=== PATIENT | male | born 1945 | race Caucasian/White ===

== ENCOUNTER 2016-09-09 07:03 | Observation (INO) | payer OTHER ==
[2016-09-09] MEDS ORDERED: NS 1,000 ML IV ONE (07:13)
--- NOTE | 2016-09-09 07:38 | CPEKG ---
Heart Rate: 65 RR Interval: 923 P-R Interval: 184 QRSD Interval: 154 QT Interval: 468 QTC Interval: 487 P [place]: 24 QRS [place]: -18 T Wave [place]: 144 EKG Severity - ABNORMAL ECG - EKG Impression: SINUS RHYTHM EKG Impression: LEFT BUNDLE BRANCH BLOCK Electronically Signed By: Ravindra Muñiz 09-Sep-2016 11:19:01
[2016-09-09 08:11] LABS: % IMMATURE GRANULYOCYTES 0.3 % (0.0-1.1); ABSOLUTE IMMATURE GRANULOCYTES 0.02 10^3/uL (0.00-0.10); ADD DIFF? NO; ADD MORPH? NO; ADD SCAN? NO; ATYPICAL LYMPHOCYTE FLAG 10 (0-99); FRAGMENT RBC FLAG 0 (0-99); HEMATOCRIT 48.3 % (40.0-51.0); HEMOGLOBIN 16.2 g/dL (13.7-17.5); LEFT SHIFT FLG 0 (0-99); LIPEMIA HEMOLYSIS FLAG 80 (0-99); MEAN CELL HEMOGLOBIN 30.5 pg (27.9-34.1); MEAN CELL HEMOGLOBIN CONCENTR. 33.5 g/dL (32.4-36.7); MEAN CELL VOLUME 90.8 fL (81.5-99.8); MEAN PLATELET VOLUME 10.5 fL (8.7-11.7); PLATELET CLUMPS FLAG 0 (0-99); PLATELET COUNT 179 10^3/uL (150-400); RED BLOOD CELL COUNT 5.32 10^6/uL (4.40-6.38); RED CELL DISTRIBUTION WIDTH 13.5 % (11.5-15.2)
[2016-09-09] MEDS ORDERED: ISOPROTERENOL HCL 0.2 MG/ML 5ML AMP ONE (08:13)
[2016-09-09] MEDS ORDERED: HEPARIN 10,000 UNIT/10 ML MDV ONE (08:13)
[2016-09-09] MEDS ORDERED: LIDOCAINE 1% 30 ML SDV ONE (08:13)
[2016-09-09] MEDS ORDERED: BUPIVACAINE 0.5% 30 ML SDV ONE (08:13)
[2016-09-09 08:17] LABS: INR 1.09 (0.83-1.16)
[2016-09-09 08:18] LABS: APTT 30.7 SEC (23.0-38.0)
[2016-09-09 08:22] LABS: ANION GAP 10 mEq/L (8-16); CALCIUM 8.8 mg/dL (8.5-10.4); CARBON DIOXIDE 24 mEq/l (22-31); CHLORIDE 108 mEq/L (97-110); CREATININE 0.8 mg/dL (0.7-1.3); GLOMERULAR FILTRATION RATE > 60; GLUCOSE 106 mg/dL (70-100); MAGNESIUM 1.9 mg/dL (1.6-2.3); POTASSIUM 4.7 mEq/L (3.5-5.2); SODIUM 142 mEq/L (134-144); SPECIMEN HEMOLYSIS 109
[2016-09-09] MEDS ORDERED: PROPOFOL 200 MG/20 ML VIAL ONE (08:49)
[2016-09-09] MEDS ORDERED: fentaNYL 250 MCG/5 ML INJ ONE (08:49)
[2016-09-09] MEDS ORDERED: DEXAMETHASONE 4 MG/ML VIAL ONE ×2 (08:49)
[2016-09-09] MEDS ORDERED: ONDANSETRON 4 MG/2 ML VIAL ONE (08:49)
[2016-09-09] MEDS ORDERED: MIDAZOLAM 2 MG/2 ML VIAL ONE (08:49)
[2016-09-09] MEDS ORDERED: PHENYLEPHRINE HCL 100 MCG/ML SYR ONE (09:09)
[2016-09-09] MEDS ORDERED: ROCURONIUM 50 MG/5 ML VIAL ONE (09:13)
[2016-09-09] MEDS ORDERED: ATROPINE SULFATE 1 MG/10 ML SYR ONE (11:08)
[2016-09-09] MEDS ORDERED: ONDANSETRON 4 MG/2 ML VIAL IVP PRN (11:11)
[2016-09-09] MEDS ORDERED: ACETAMINOPHEN 325 MG TAB PO PRN (11:11)
[2016-09-09] MEDS ORDERED: OXYCODONE/APAP 5/325 TAB PO PRN (11:11)
--- NOTE | 2016-09-09 11:11 | EPPROC ---
Electrophysiology Procedure Note: ELECTROPHYSIOLOGIC STUDY AND CATHETER MEDIATED ABLATION OF SLOW/FAST AV ROSS REENTRY TACHYCARDIA PROCEDURES PERFORMED: 01588-15 EP evaluation with RA/RV/LA pace/record, with arrhythmia induction 12143-00 EP evaluation with RA/RV pace record, insert/reposition catheter, with arrhythmia induction 37623 Intracardiac catheter ablation, SVT arrhythmogenic focus 01991 3D mapping Fluoroscopy INDICATION: LBBB SVT PROCEDURE: Catheters & Anesthesia: The patient arrived in the Electrophysiology Laboratory in the fasting state. The right clavicular region, right groin, and left groin area were prepped and draped in the usual sterile manner. Anesthesiologist Dr. Myranda Felix administered general anesthesia. Appropriate non-invasive blood pressure, pulse oximetry and end-tidal CO2 monitoring was established. All catheters were placed percutaneously using the modified Seldinger technique , and advanced into position under fluoroscopic guidance. One #6 Syrian hexapolar non-deflectable electrode catheter was inserted into the right atrial appendage via the left femoral vein (2mm spacing; except the proximal ring which was 25cm from the tip - used for unipolar recordings). One #7 Syrian deflectable octapolar electrode catheter was advanced to the His-bundle position via the left femoral vein (2mm spacing). One #7 Syrian deflectable quadrapolar catheter was advanced to the anteroseptal right ventricle via the right femoral vein. One #7 Syrian deflectable catheter with 10 pairs of electrodes was placed via the right femoral vein into the coronary sinus. Heparin was given to keep ACT > 200 s. Programmed stimulation was performed from the right atrium, right ventricle and coronary sinus (left atrium). Parahisian pacing demonstrated constant H-A interval with changing V-A intervals and stimulus-A intervals during capture and loss of capture of proximal RBB proving retrograde conduction over AV node. AVNRT was induced easily during infusion of isoproterenol 1 mcg/min. Ventricular extrastimuli delivered during tachycardia without altering antegrade His bundle activation did not advance next atrial potential, indicating that the tachycardia was not utilizing an accessory pathway for retrograde conduction. VA interval was -20 ms. Post entrainment of the tachycardia from the ventricle, there was VAHV response. Mapping of the right atrium and coronary sinus during AVNRT identified earliest atrial activation above the tendon of Laith at a level slightly posterior to the level of the His bundle, consistent with retrograde conduction over the fast AV ross pathway. A #8 Syrian deflectable quadrapolar electrode catheter (2mm-5mm-2mm spacing) with 4 mm tip electrode and sensor for the 3D mapping Carto system was advanced to the right atrium. 3 D mapping of the inter-atrial septum and coronary sinus was performed and location of the AV node was marked. A SL2 sheath was used. RF applications were delivered to the region between the tricuspid annulus and the coronary sinus ostium, at the level of the upper edge of the coronary sinus ostium. Radiofrequency applications were also delivered along the roof of the proximal coronary sinus. Junctional rhythm occurred during all of the RF applications. Programmed stimulation was continued post ablation at baseline and during graded doses of isoproterenol upto 4mcg/min. Sustained AVNRT was not inducible. There were single echo beats. The catheters were removed. The long sheath was changed to a short 9 Fr sheath. The patient was transferred to the cardiovascular holding area in stable condition. Vascular access sheaths were removed in the holding area. There were no apparent complications. Results: A. Spontaneous Intervals: Pre ablation SCL 980 ms AH 50 ms HV 60 ms Post ablation SCL 530 ms AH 50 ms HV 55 ms B. Antegrade AV ross function (decremental pacing) Pre ablation FPERP 390 ms WBB CL 380 ms Post ablation FPERP 350 ms WBB CL 340 ms C. Retrograde AV ross function (decremental pacing) Pre ablation FPERP 400 ms WBB CL 390 ms D. Arrhythmias: Sustained slow/fast AVNRT Cycle length 380 ms, AH interval 300 ms, VIERA interval 80 ms VA interval -20 ms CONCLUSIONS 1. AV ross reentrant tachycardia using the slow AV ross pathway for antegrade conduction and the fast AV ross pathway for retrograde conduction. ( Slow/fast AVNRT). 2. Successful ablation of the slow AV ross pathway with elimination of 1:1 antegrade conduction over the slow AV ross pathway, all retrograde conduction over the slow AV ross pathway and the inducibility of AVNRT. 3. No complications. Patient Problems: Problems Problem Status Diagnosed Supraventricular tachycardia Acute
[2016-09-09] MEDS ORDERED: ALPRAZolam 0.5 MG TAB PO PRN (11:13)
[2016-09-09] MEDS ORDERED: ASPIRIN 325 MG TAB PO PRN (11:13)
[2016-09-09] MEDS ORDERED: IBUPROFEN 200 MG TAB PO PRN (11:13)
[2016-09-09] MEDS ORDERED: ZOLPIDEM TARTRATE 5 MG TAB PO PRN (11:13)
--- NOTE | 2016-09-09 11:36 | CPEKG ---
Heart Rate: 79 RR Interval: 759 P-R Interval: 204 QRSD Interval: 154 QT Interval: 444 QTC Interval: 510 P [place]: 45 QRS [place]: -12 T Wave [place]: 148 EKG Severity - ABNORMAL ECG - EKG Impression: SINUS RHYTHM EKG Impression: LEFT BUNDLE BRANCH BLOCK Electronically Signed By: Radhames Arizmendi 09-Sep-2016 16:44:20
[2016-09-09 12:11] LABS: ANION GAP 10 mEq/L (8-16); CALCIUM 8.4 mg/dL (8.5-10.4); CARBON DIOXIDE 24 mEq/l (22-31); CHLORIDE 108 mEq/L (97-110); CREATININE 0.9 mg/dL (0.7-1.3); GLOMERULAR FILTRATION RATE > 60; GLUCOSE 115 mg/dL (70-100); MAGNESIUM 1.8 mg/dL (1.6-2.3); POTASSIUM 4.3 mEq/L (3.5-5.2); SODIUM 142 mEq/L (134-144)
[2016-09-09] MEDS ORDERED: metFORMIN SR 500 MG TAB PO SCH (17:00)
[2016-09-09] MEDS: METOPROLOL TARTRATE 25 MG TAB PO SCH (19:59)
[2016-09-09] MEDS ORDERED: ATORVASTATIN CALCIUM 40 MG TAB PO SCH (21:00)
[2016-09-09] MEDS ORDERED: METFORMIN HCL 500 MG PO SCH (21:00)
[2016-09-09] MEDS ORDERED: metFORMIN HCL 500 MG TAB PO SCH (21:00)
[2016-09-10 04:52] LABS: % IMMATURE GRANULYOCYTES 0.4 % (0.0-1.1); ABSOLUTE IMMATURE GRANULOCYTES 0.05 10^3/uL (0.00-0.10); ADD DIFF? NO; ADD MORPH? NO; ADD SCAN? NO; ATYPICAL LYMPHOCYTE FLAG 0 (0-99); FRAGMENT RBC FLAG 10 (0-99); HEMATOCRIT 45.5 % (40.0-51.0); HEMOGLOBIN 15.8 g/dL (13.7-17.5); LEFT SHIFT FLG 0 (0-99); LIPEMIA HEMOLYSIS FLAG 90 (0-99); MEAN CELL HEMOGLOBIN CONCENTR. 34.7 g/dL (32.4-36.7); MEAN CELL VOLUME 89.4 fL (81.5-99.8); MEAN PLATELET VOLUME 10.4 fL (8.7-11.7); PLATELET CLUMPS FLAG 0 (0-99); PLATELET COUNT 190 10^3/uL (150-400); RED BLOOD CELL COUNT 5.09 10^6/uL (4.40-6.38); RED CELL DISTRIBUTION WIDTH 13.3 % (11.5-15.2)
[2016-09-10 04:57] LABS: ANION GAP 11 mEq/L (8-16); CALCIUM 8.9 mg/dL (8.5-10.4); CARBON DIOXIDE 23 mEq/l (22-31); CHLORIDE 106 mEq/L (97-110); CREATININE 0.8 mg/dL (0.7-1.3); GLOMERULAR FILTRATION RATE > 60; GLUCOSE 108 mg/dL (70-100); POTASSIUM 4.5 mEq/L (3.5-5.2); SODIUM 140 mEq/L (134-144)
[2016-09-10 05:06] LABS: CREATINE KINASE-MB FRACTION 2.34 ng/mL (0-3.19)
[2016-09-10 05:17] LABS: INR 1.16 (0.83-1.16); PROTIME(PATIENT) 14.8 SEC (12.0-15.0)
[2016-09-10 05:40] LABS: TROPONIN I 0.076 ng/mL (0-0.034)
[2016-09-10 08:18] VITALS: BP 101/66; PULSE 61; RESP 18; TEMP 97.9; O2SAT 93
[2016-09-10] MEDS: METOPROLOL TARTRATE 25 MG TAB PO SCH (08:26)
--- NOTE | 2016-09-10 08:31 | CPEKG ---
Heart Rate: 62 RR Interval: 968 P-R Interval: 204 QRSD Interval: 156 QT Interval: 476 QTC Interval: 484 P [place]: 18 QRS [place]: -24 T Wave [place]: 148 EKG Severity - ABNORMAL ECG - EKG Impression: SINUS RHYTHM EKG Impression: lbbb EKG Impression: PROBABLE LVH WITH SECONDARY REPOL ABNRM EKG Impression: PROBABLE INFERIOR INFARCT, AGE INDETERMINATE EKG Impression: CONSIDER ANTERIOR INFARCT Electronically Signed By: Radhames Arizmendi 10-Sep-2016 16:58:16
--- NOTE | 2016-09-10 12:10 | GDS ---
[f rep st] DISCHARGE SUMMARY PRIMARY HAND LENS POLISHER: Kerwin Simon MD; the patient is also under the care of Ravindra Muñiz MD. DISCHARGE DIAGNOSIS: Atrioventricular stacy reentry tachycardia, status post ablation. HOSPITAL COURSE: For detailed H and P, please see prior dictation. Briefly, the patient is a 71-yea r-old male with a history of SVT, which terminated with adenosine on 2 occasions. He was treated wit h beta blockers, but wished to get off medical therapy. Ultimately, the decision was made to procee d with an EP study and possible ablation. This was performed by Dr. 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 His procedure was uncomplicated. The following morning, he denied any chest discomfort or palpitations. He was monitored on telemetry and remained in normal sinus rhythm. His EKG on the day of discharge revealed normal sinus rhythm with a left bun dle branch block, which is old. His echocardiogram preliminary results revealed preserved LV functio n with fat pad and possible trace pericardial effusion. His troponin peaked at 0.076. DISCHARGE PHYSICAL EXAMINATION: GENERAL APPEARANCE: The patient appears in no acute distress. FLORESITA L SIGNS: Blood pressure 101/66, heart rate 61, respirations 93% on room air, afebrile. LUNGS: Zulema r to auscultation. No wheezes, rhonchi, or crackles auscultated. CARDIAC: Regular rate and rhythm, without any murmurs, rubs, or gallops appreciated. EXTREMITIES: Groin where access was obtained fo r the EP study and ablation is clean, intact, and without any evidence of infection or hematoma. DISCHARGE MEDICATIONS: Xanax 0.5 mg p.r.n., aspirin 325 mg daily, Lipitor 80 mg at bedtime, ibuprofe n p.r.n., metoprolol 12.5 mg b.i.d., Ambien 10 mg at bedtime, metformin 500 mg at bedtime, herbal sup plement daily. PLAN: The patient is currently stable and ready for discharge home. He has been given groin precaut ions. He will follow up as scheduled with Dr. Muñiz in 1 month. Greater than 30 minutes was spent coordinating the patient's care today. /[id number]/MODL
--- NOTE | 2016-09-14 11:32 | ECHO ---
[id number] + + [address] : : [place] [address] : : [phone] + + Adult Echocardiographic Report + ------+ :Name: JULIO MISHRA Joe Date: 09/10/2016 10:12 AM : : Hospital Admission Number: [id number] Locatio n: 204: :: 1945 Gender: Male Height: 70 in : :Age: 71 yrs Race: WH Weight: 210 lb : :Reason For Study: SVT/F/U post EP study : : BSA: 2.1 meters 2 : + ------+ MMode/2D Measurements & Calculations IVSd: 0.81 cm LVIDd: 5.9 cm EDV(Teich): Ao root diam: LVPWd: 0.82 cm 170.9 ml 4.2 cm LA dimension: 4.2 cm LVLd ap4: 9.5 cm SV(MOD-sp4): EDV(MOD-sp4): 64.0 ml 90.0 ml LVLs ap4: 7.7 cm ESV(MOD-sp4): 26.0 ml EF(MOD-sp4): 71.1 % Normal Measurement Values: + + :LVIDd (3.5-5.7cm) IVSd (0.6-1.1cm) LVPWd (0.6-1.1cm) Aortic Root (2.0-3.7cm)Left Atrium (1.5-4.0cm): :LV Vol(d) (76-115ml) LV Vol(s) (29-48ml) Ejec Fraction (50-65%)PV Danis (0.6- 1.2m/s) TV Danis (0.4-1.0m/s) : :MV E Danis (0.8-1.0m/s)MV A Danis (0.3-1.0m/s)LVOT Danis (0.7-1.2m/s) Asc Ao Danis ( 0.9-1.8m/s) : + + Doppler Measurements & Calculations MV E max danis: 66.6 cm/sec Ao mean P.1 mmHg MV A max danis: 96.3 cm/sec Ao V2 mean: 118.2 cm/sec MV E/A: 0.69 Ao V2 VTI: 34.1 cm Left Ventricle The left ventricle is mildly dilated. There is normal left ventricular wall thickness. Left ventricular systolic function is normal. Ejection Fraction = 55-60%. There is Doppler evidence for diastolic dysfunction. Septal motion is consistent with conduction abnormality. Right Ventricle The right ventricle is normal in size and function. Atria The left atrial size is normal. Right atrial size is normal. The interatrial septum is intact with no evidence for an atrial septal defect. Mitral Valve Slight chordal LOREN. There is no evidence of mitral valve prolapse. There is no mitral valve stenosis. There is mild mitral regurgitation. Tricuspid Valve Normal tricuspid valve. There is trace tricuspid regurgitation. Aortic Valve The aortic valve opens well. There is no aortic stenosis. There is no aortic insufficiency. Pulmonic Valve The pulmonic valve is normal in structure and function. There is no pulmonic valvular regurgitation. Great Vessels The aortic root is normal size. Pericardium/Pleural Fat pad vs. trivial anterior pericardial effusion with echogenicity within. Conclusion A complete two-dimensional transthoracic echocardiogram was performed (2D, M-mode, Doppler and color flow Doppler). Left ventricular systolic function is normal. Ejection Fraction = 55-60%. There is Doppler evidence for diastolic dysfunction. Septal motion is consistent with conduction abnormality. Slight chordal LOREN. There is mild mitral regurgitation. There is trace tricuspid regurgitation. Fat pad vs. trivial anterior pericardial effusion with echogenicity within. The left ventricle is mildly dilated. Final Reading Physician: Marisela Deluna signed on 09/14/2016 11:27 AM Ordering Physician: Ravindra Muñiz Performed By: Emily Maciel, SEBASTIANCS
== END 2016-09-10 11:40 | disposition home or self-care (01) ==
LOC: FCATH 07:03 → F2W 08:47
PROVIDERS: ADMIT Internal Medicine Cardiovascular Disease; ATTEND Internal Medicine Cardiovascular Disease
PROC: 4A123FZ Monitoring of Cardiac Rhythm, Percutaneous Approach (ICD-10-PCS; principal; 2016-09-09)
PROC: 02563ZZ Destruction of Right Atrium, Percutaneous Approach (ICD-10-PCS; principal; 2016-09-09)
PROC: 02K83ZZ Map Conduction Mechanism, Percutaneous Approach (ICD-10-PCS; principal; 2016-09-09)
DX: I47.1 Supraventricular tachycardia (principal)
CPT/HCPCS: 93005; 93613; 93621; 93623; 93653; C1730; C1732; C1893; J1100; J1644; J2250; J2370; J2405; J2704; J3010; J0461

== ENCOUNTER → 2016-09-28 | Outpatient (CLI) | payer OTHER ==
--- NOTE | 2016-09-28 17:30 | DX ---
Fluoroscopy with sniff test History: Right diaphragmatic paralysis. Fluoroscopy time: 60 seconds utilized with dose 9.3 mGy. Technique: Sniff test performed with intermittent fluoroscopy with the patient in the upright positio n. Findings: Right hemidiaphragm is elevated and demonstrates only minimal motion with inspiration. Duri ng the sniff test there is paradoxical slight superior motion of the right hemidiaphragm with normal excursion of the left hemidiaphragm inferiorly. Impression: [Paralysis of the] elevated right hemidiaphragm with slight paradoxical motion during sni ff test.
== END ==
LOC: FIMAGING 12:52
PROVIDERS: ATTEND Internal Medicine Pulmonary Disease
DX: J98.6 Disorders of diaphragm (principal)

== ENCOUNTER → 2016-10-07 | Outpatient (CLI) | payer OTHER | LOC: BHFA 13:30 | PROVIDERS: ATTEND Internal Medicine Cardiovascular Disease | DX: I47.1 Supraventricular tachycardia (principal); I44.7 Left bundle-branch block, unspecified ==

== ENCOUNTER → 2018-03-01 | Outpatient (CLI) | payer OTHER | DX: I44.7 Left bundle-branch block, unspecified (principal); I47.1 Supraventricular tachycardia; I27.0 Primary pulmonary hypertension ==

== ENCOUNTER → 2018-03-03 | Outpatient (CLI) | payer OTHER | LOC: BHLMT 11:30 | PROVIDERS: ATTEND Internal Medicine Cardiovascular Disease | DX: R06.02 Shortness of breath (principal) | CPT/HCPCS: 93306-PO ==

== ENCOUNTER → 2019-01-17 | Outpatient (CLI) | payer OTHER | LOC: FIMAGING 07:51 | PROVIDERS: ATTEND Family Medicine | DX: M47.817 Spondylosis without myelopathy or radiculopathy, lumbosacral region (principal); M47.816 Spondylosis without myelopathy or radiculopathy, lumbar region; M46.97 Unspecified inflammatory spondylopathy, lumbosacral region; M79.604 Pain in right leg ==

== ENCOUNTER → 2019-01-24 | Outpatient (CLI) | payer OTHER | LOC: BHFA 08:30 | PROVIDERS: ATTEND Internal Medicine Cardiovascular Disease | DX: R06.02 Shortness of breath (principal); I42.9 Cardiomyopathy, unspecified; I44.7 Left bundle-branch block, unspecified | CPT/HCPCS: 78452; 93017; A9500; J2785 ==